=== PATIENT | female | born 1935 | race Asian ===

== ENCOUNTER 2018-09-05 14:58 | Emergency (ER) | payer SELFPAY ==
[~2018-09-05] VITALS: Ht 152.4 cm; Wt 54.4 kg
[~2018-09-05 14:58] MED LIST: NORVASC5 MG ORAL
--- NOTE | 2018-09-05 15:06 | Emergency Room Report ---
History of Present Illness General Chief Complaint: Generalized Weakness Source: Patient Present Illness HPI Patient has syncopal episode today. She fell and hit the back of her head. She has some mild tenderness there at this time. She's felt weak. She stopped taking her Norvasc 2 weeks ago. She also took some [id number] blood thinner at that time. The weakness has been progressing recently. Paramedics performed an EKG that showed no injury and also had a blood pressure over 200 systolic and a diastolic of 117. Patient has had multiple episodes of L leg cramping. This began after going to a spa. Sometimes there is shaking there. No chest pain, palpitations, dyspnea. No dysuria. No rashes, NVD. No depression. Allergies: Coded Allergies: No Known Allergies (Unverified , 09/05/18) Patient History Past Medical History: see triage record Social History: Denies: smoking, alcohol use, drug use Social History Narrative from [place] Reviewed Nursing Documentation: PMH: Agreed; PSxH: Agreed Nursing Documentation-PMH Hx Cardiac Problems: Yes Hx Hypertension: Yes Hx Diabetes: Yes Review of Systems All Other Systems: negative except mentioned in HPI Physical Exam Vital Signs Date Time Temp Pulse Resp B/P (MAP) Pulse Ox O2 Delivery O2 Flow Rate FiO2 09/05/18 14:53 98.8 76 18 212/117 99 Room Air Sp02 EP Interpretation: reviewed, normal General Appearance: alert, GCS 15, thin, Chronically Ill Head: other - tender L parietal area Eyes: bilateral eye normal inspection, bilateral eye PERRL, bilateral eye EOMI ENT: moist mucus membranes Neck: supple, no bony tend Respiratory: chest non-tender, lungs clear Cardiovascular #1: regular rate, rhythm Cardiovascular #2: 2+ radial (L) Gastrointestinal: normal bowel sounds, non tender, soft, no mass Genitourinary: no CVA tenderness Musculoskeletal: back normal, digits/nails normal, normal range of motion, non- tender, no calf tenderness Neurologic: alert, motor strength/tone normal, DTRs symmetric, sensory intact, normal gait, speech normal, oriented - X2 Psychiatric: depressed affect Skin: other - sallo Procedures Critical Care Time Critical Care Time Total Critical Care Time: 60 min bedside evaluation and treatment excludes procedures (EKG). Reason for critical care: subdural, hypertensive urgency Possible complications: hypotension, hypertension, MA, shock, arrhythmias, metabolic acidosis, end organ damage, respiratory failure. Interventions: control of BP/nicardipine drip, consultation with neuro ICU/ [facility], arrange for transfer to higher level of care, repeat exams Course: Patient post fall with head injury. BP critically high and immediate maneuvers to control. Discuss with family as want to patient sent home. CT returns with bleed and edema. Discussions with [facility] to arrange for transfer. Request nicardipine drip. BP controlled. Critical care transport arranged. Consultations: nursing staff, EMS, family, [facility] Performed by: Dr. Linn Tolerated well condition = critical Medical Decision Making Diagnostic Impression: Primary Impression: Subdural hematoma Additional Impressions: Syncope Qualified Codes: R55 - Syncope and collapse Head injury Qualified Codes: S09.90XA - Unspecified injury of head, initial encounter Hypertensive urgency Right parietal edema ER Course Patient presents after head trauma after fall with noncompliance with the blood pressure medicine. Differential includes bleed, stroke, hypertensive urgency amongst others. Evaluation will be with EKG, CT the head, chest x-ray and labs. The patient will be given a dose of her amlodipine orally now. EKG without injury. WBC elevated. CMP with elevated glucose. CXR clear. Family state they do not want her admitted to the hospital and want to take her home. CT the head shows anterior parafalcine subdural hematoma without mass effect. Edema in the right fronto/parietal deep white matter. Discussed findings with family who understand need for transfer. Repeat exam with min L hand weakness. The patient was presented to [facility]. She excepted the patient requests the patient be started on nicardipine drip. This is been ordered. Also metoprolol 5 mg been ordered IV. Blood pressure controlled on Nicardipine drip. Patient neurologic exam unchanged. Patient improved and airway and VS stable for CCRT transfer to higher level of care. Laboratory Tests Test 09/05/18 15:10 09/05/18 15:28 White Blood Count 13.1 K/UL (4.8-10.8) H Red Blood Count 4.61 M/UL (4.20-5.40) Hemoglobin 13.9 G/DL (12.0-16.0) Hematocrit 40.5 % (37.0-47.0) Mean Corpuscular Volume 88 FL (80-99) Mean Corpuscular Hemoglobin 30.1 PG (27.0-31.0) Mean Corpuscular Hemoglobin Concent 34.2 G/DL (32.0-36.0) Red Cell Distribution Width 11.1 % (11.6-14.8) L Platelet Count 170 K/UL (150-450) Mean Platelet Volume 8.3 FL (6.5-10.1) Neutrophils (%) (Auto) % (45.0-75.0) Lymphocytes (%) (Auto) % (20.0-45.0) Monocytes (%) (Auto) % (1.0-10.0) Eosinophils (%) (Auto) % (0.0-3.0) Basophils (%) (Auto) % (0.0-2.0) Differential Total Cells Counted 100 Neutrophils % (Manual) 83 % (45-75) H Lymphocytes % (Manual) 12 % (20-45) L Monocytes % (Manual) 5 % (1-10) Eosinophils % (Manual) 0 % (0-3) Basophils % (Manual) 0 % (0-2) Band Neutrophils 0 % (0-8) Platelet Estimate Adequate Platelet Morphology Normal Red Blood Cell Morphology Normal Prothrombin Time 11.2 SEC (9.30-11.50) Prothrombin Time INR 1.1 (0.9-1.1) PTT 29 SEC (23-33) Sodium Level 137 MMOL/L (136-145) Potassium Level 3.9 MMOL/L (3.5-5.1) Chloride Level 101 MMOL/L (98-107) Carbon Dioxide Level 25 MMOL/L (21-32) Anion Gap 11 mmol/L (5-15) Blood Urea Nitrogen 9 mg/dL (7-18) Creatinine 0.7 MG/DL (0.55-1.30) Estimate Glomerular Filtration Rate mL/min (>60) Glucose Level 218 MG/DL (74-106) H Calcium Level 8.9 MG/DL (8.5-10.1) Magnesium Level 1.8 MG/DL (1.8-2.4) Total Bilirubin 0.7 MG/DL (0.2-1.0) Aspartate Amino Transferase (AST) 20 U/L (15-37) Alanine Aminotransferase (ALT) 24 U/L (12-78) Alkaline Phosphatase 99 U/L (46-116) Total Creatine Kinase 101 U/L (26-308) Troponin I 0.026 ng/mL (0.000-0.056) Pro-B-Type Natriuretic Peptide 326 pg/mL (0-125) H Total Protein 8.0 G/DL (6.4-8.2) Albumin 3.7 G/DL (3.4-5.0) Globulin 4.3 g/dL Albumin/Globulin Ratio 0.9 (1.0-2.7) L Urine Color Pale yellow Urine Appearance Clear Urine pH 8 (4.5-8.0) Urine Specific [place] 1.010 (1.005-1.035) Urine Protein 2+ (NEGATIVE) H Urine Glucose (UA) Negative (NEGATIVE) Urine Ketones Negative (NEGATIVE) Urine Blood Negative (NEGATIVE) Urine Nitrite Negative (NEGATIVE) Urine Bilirubin Negative (NEGATIVE) Urine Urobilinogen Normal MG/DL (0.0-1.0) Urine Leukocyte Esterase Negative (NEGATIVE) Urine RBC 0-2 /HPF (0 - 2) Urine WBC 0-2 /HPF (0 - 2) Urine Squamous Epithelial Cells Few /LPF (NONE/OCC) Urine Bacteria Few /HPF (NONE) EKG Diagnostic Results Rate: normal Rhythm: NSR ST Segments: no acute changes Rhythm Strip Diag. Results EP Interpretation: yes Rhythm: NSR, no PVC's, no ectopy Chest X-Ray Diagnostic Results Chest X-Ray Diagnostic Results : Chest X-Ray Ordered: Yes # of Views/Limited/Complete: 1 View Indication: Other PA Xray: Interpretation reviewed Interpretation: no consolidation, no effusion, no pneumothorax Impression: No acute disease Electronically Signed by: Electronically signed by Bentley Linn MD CT/MRI/US Diagnostic Results CT/MRI/US Diagnostic Results : Imaging Test Ordered: head Impression see above report Last Vital Signs Date Time Temp Pulse Resp B/P (MAP) Pulse Ox O2 Delivery O2 Flow Rate FiO2 09/05/18 18:37 98.0 70 16 134/56 98 Room Air Status: improved Disposition: XFER SHT-TRM HOSP Condition: Critical Bentley Linn MD Sep 05, 2018 15:06
[2018-09-05 15:29] VITALS: BP 187/71
[2018-09-05 15:40] LABS: HEMATOCRIT 40.5 % (37.0-47.0); HEMOGLOBIN 13.9 G/DL (12.0-16.0); MEAN CORPUSCULAR VOLUME 88 FL (80-99); PLATELET COUNT 170 K/UL (150-450); RED BLOOD COUNT 4.61 M/UL (4.20-5.40); RED CELL DISTRIBUTION WIDTH 11.1 % (11.6-14.8); WHITE BLOOD COUNT 13.1 K/UL (4.8-10.8)
[2018-09-05 15:50] LABS: ANION GAP 11 mmol/L (5-15); BLOOD UREA NITROGEN 9 mg/dL (7-18); CALCIUM 8.9 MG/DL (8.5-10.1); CARBON DIOXIDE 25 MMOL/L (21-32); CHLORIDE 101 MMOL/L (98-107); CREATININE 0.7 MG/DL (0.55-1.30); POTASSIUM 3.9 MMOL/L (3.5-5.1); SODIUM 137 MMOL/L (136-145)
[2018-09-05 15:59] LABS: ALANINE AMINOTRANSFERASE 24 U/L (12-78); ALBUMIN 3.7 G/DL (3.4-5.0); ALBUMIN/GLOBULIN RATIO 0.9 (1.0-2.7); ALKALINE PHOSPHATASE 99 U/L (46-116); ASPARTATE AMINO TRANSFERASE 20 U/L (15-37); BILIRUBIN,TOTAL 0.7 MG/DL (0.2-1.0); CREATINE KINASE 101 U/L (26-308)
[2018-09-05 16:03] LABS: APPEARANCE,URINE CLEAR; BILIRUBIN, URINE NEGATIVE (NEGATIVE); COLOR,URINE PALE YELLOW; GLUCOSE, URINE (UA) NEGATIVE (NEGATIVE); KETONES,URINE NEGATIVE (NEGATIVE); LEUKOCYTE ESTERASE ,URINE NEGATIVE (NEGATIVE); NITRITE,URINE NEGATIVE (NEGATIVE); PH,URINE 8 (4.5-8.0); PROTEIN,URINE 2+ (NEGATIVE); UROBILINOGEN,URINE NORMAL MG/DL (0.0-1.0)
[2018-09-05] MEDS ORDERED: fentaNYL 100 mcg/2 mL IV ONE (16:15)
--- NOTE | 2018-09-05 16:34 | Diagnostic Imaging Report ---
Indications: Syncope Technique: Spiral acquisitions obtained through the brain. Angled axial and coronal 5 x 5 mm slices were reconstructed. Total dose length product 1390.1 mGycm. CTDI vol(s) 70.38 mGy. Dose reduction achieved using automated exposure control Comparison: None. Findings: There is a left high parietal scalp hematoma. There is low-attenuation within the high right parietal lobe, predominantly in the deep white matter. There does appear to be some extension to the cortex. This results in mass effect, compressive and displacing the body of the lateral ventricle. There is a subdural hematoma running along the anterior falx, measuring approximately 4 mm thick along most of its length, but with a very focal area of widening that is 8 mm in thickness anteriorly. Posterior to this, there is a second focal area of widening that is about 7 mm thick. This does not result in any mass effect. There is age-related enlargement of the ventricles and extra-axial CSF spaces, predominantly the latter. 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 No midline shift. The basilar cisterns are patent.. There is periventricular white matter low-attenuation consistent with chronic ischemic change. The calvarium is intact. The visualized orbits and sinuses are unremarkable. The mastoids are clear. Impression: Positive for anterior parafalcine subdural hematoma. This does not result in any significant mass effect Edema within the right frontal deep white matter resulting in mild local mass effect. Uncertain as to whether this represents cytotoxic edema due to an infarct, versus vasogenic edema possibly related to tumor or infection. Consider contrast MRI for better characterization Left high parietal scalp hematoma Chronic and age-related changes, as described Negative for skull fracture. Critical value findings discussed by phone with Dr. Linn in the emergency room at the time of interpretation The CT scanner at [facility] is accredited by the [employer] and the scans are performed using protocols designed to limit radiation exposure to as low as reasonably achievable to attain images of sufficient resolution adequate for diagnostic evaluation.
[2018-09-05 16:40] LABS: INR 1.1 (0.9-1.1)
[2018-09-05] MEDS ORDERED: Metoprolol 5mg/5ml Inj IVP STA (16:51)
[2018-09-05 16:52] VITALS: BP 198/71
[2018-09-05] MEDS ORDERED: niCARdipine HCl 200 ML IV SCH (17:00)
[2018-09-05 17:21] VITALS: BP 156/67
[2018-09-05 17:36] VITALS: BP 134/56
--- NOTE | 2018-09-05 17:37 | Diagnostic Imaging Report ---
Indication: Chest pain Technique: One view of the chest Comparison: none Findings: Lungs and pleural spaces are clear. Heart size is normal. The aorta is tortuous and calcified Impression: No acute process
[2018-09-05 18:37] VITALS: BP 134/56
--- NOTE | 2018-09-06 15:04 | Cardiology Report ---
APPROVED REPORT EKG Measurement Heart [id number] Normal sinus rhythm Normal ECG
== END 2018-09-05 18:41 | disposition short-term general hospital (02) ==
LOC: EDBD 14:58 → EMR 16:26
DX: S06.5X0A Traumatic subdural hemorrhage without loss of consciousness, initial encounter (principal); W19.XXXA Unspecified fall, initial encounter; Y92.9 Unspecified place or not applicable; I16.0 Hypertensive urgency; R60.0 Localized edema; I10 Essential (primary) hypertension; E11.9 Type 2 diabetes mellitus without complications
CPT/HCPCS: 36415; 70450; 71045; 80053; 81003; 82550; 83735; 83880; 84484; 85007; 85025; 85610; 85730; 93005; 96365; 96375; 99285; J2405